=== PATIENT | female | born 1970 | race Caucasian/White ===

== ENCOUNTER 2017-01-07 08:26 | Emergency (ER) | payer MEDICAID ==
[2017-01-07 08:35] VITALS: BMI 31.6
[2017-01-07 08:36] VITALS: TEMP 98.9; O2SAT 98
[2017-01-07] MEDS ORDERED: Dexamethasone 4 mg/1 ml IM STA (08:52)
--- NOTE | 2017-01-07 08:52 | ED PDOC ---
Arrival/HPI - General Chief Complaint: Upper Extremity Problem/Injury Time Seen by Provider: 01/07/17 08:36 Historian: Patient - History of Present Illness Narrative History of Present Illness (Text): 01/07/17 08:50 Addis Slade is a 46 year old female, whose past medical history includes herniated disc's in her cervical spine, hypertension, and hypercholesterolemia, presents to the emergency department complaining of left shoulder pain for the past three weeks. Patient reports the pain is intermittent and has a sharp sensation when presents. She states pain comes whenever she coughs, sneezes, or adds any strenuous work to it. Patient notes she has taken Flexeril and Tramadol prescribed for her hernia, but there is no significant relief. Patient denies any other complaints. Denies any trauma. PMD: Dr. Myers Time/Duration: < month (3 weeks) Symptom Onset: Sudden Symptom Course: Unchanged Quality: Stabbing Activities at Onset: Light Modifying Factors (Text): worse with strenuous movement such as coughing, sneezing Past Medical History - Provider Review Nursing Documentation Reviewed: Yes - Infectious Disease Hx of Infectious Diseases: None - Pulmonary Hx Asthma: Yes - Neurological Other/Comment: herniated disc to cervical and lumbar - Hematological/Oncological Hx Anemia: Yes - Musculoskeletal/Rheumatological Hx Arthritis: Yes - Psychiatric Hx Depression: Yes Hx Substance Use: No - Surgical History Hx Section: Yes (x2) Hx Cholecystectomy: Yes Hx Gastric Bypass Surgery: Yes (04/2016) - Anesthesia Hx Anesthesia Reactions: No Hx Malignant Hyperthermia: No Family/Social History - Physician Review Nursing Documentation Reviewed: Yes Family/Social History: Unknown Family HX Smoking Status: Current Some Days Smoker Hx Alcohol Use: No Hx Substance Use: No Allergies/Home Meds Allergies/Adverse Reactions: Allergies dye Allergy (Uncoded 01/07/17 08:35) RASH Review of Systems - Review of Systems Constitutional: absent: Fevers Respiratory: absent: SOB Cardiovascular: absent: Chest Pain Gastrointestinal: absent: Abdominal Pain Genitourinary Female: absent: Dysuria Musculoskeletal: Other (left shoulder pain) Neurological: absent: Headache Physical Exam Vital Signs Reviewed: Yes Vital Signs Temp Pulse Resp BP Pulse Ox 01/07/17 09:56 80 16 131/84 98 01/07/17 08:26 98.9 F 81 18 136/83 98 Temperature: Afebrile Blood Pressure: Normal Pulse: Regular Respiratory Rate: Normal Appearance: Positive for: Well-Appearing, Non-Toxic, Comfortable Pain Distress: None Mental Status: Positive for: Alert and Oriented X 3 - Systems Exam Head: Present: Atraumatic, Normocephalic Pupils: Present: PERRL Extroacular Muscles: Present: EOMI Conjunctiva: Present: Normal Neck: Present: Normal Range of Motion Respiratory/Chest: Present: Clear to Auscultation, Good Air Exchange. No: Respiratory Distress, Accessory Muscle Use Cardiovascular: Present: Regular Rate and Rhythm, Normal S1, S2. No: Murmurs Abdomen: Present: Normal Bowel Sounds. No: Tenderness, Distention, Peritoneal Signs Upper Extremity: Present: Tenderness (posterior left shoulder ). No: Cyanosis, Edema Lower Extremity: Present: Normal Inspection. No: Edema Neurological: Present: GCS=15, CN II-XII Intact, Speech Normal Skin: Present: Warm, Dry, Normal Color. No: Rashes Psychiatric: Present: Alert, Oriented x 3, Normal Insight, Normal Concentration Medical Decision Making ED Course and Treatment: 01/07/17 Impression: 46 year old female with tenderness on posterior left shoulder Differential Diagnosis included but are not limited to: nerve impingement vs. arthritis vs. tendonitis Plan: -- Decadron -- Flexeril -- Toradol -- Reassess and disposition Progress Notes: On reevaluation, patient is feeling much better. There is no indication for xray. No trauma. Will discharge patient home with PMD f/u. She will continue taking her pain meds at home and is happy with the plan for followup. - Medication Orders Current Medication Orders: Discontinued Medications Cyclobenzaprine HCl (Flexeril) 10 mg PO STAT STA Stop: 01/07/17 08:53 Last Admin: 01/07/17 09:10 Dose: 10 mg Dexamethasone (Decadron Inj) 8 mg IM STAT STA Stop: 01/07/17 08:53 Last Admin: 01/07/17 09:09 Dose: 8 mg IM Administration Charges Document 01/07/17 09:09 AD (Rec: 01/07/17 09:09 AD [id number]) Injection Site MAR Injection Site Right Gluteus Gato Charges for Administration # of IM Administrations 1 Ketorolac Tromethamine (Toradol) 60 mg IM STAT STA Stop: 01/07/17 08:53 Last Admin: 01/07/17 09:09 Dose: 60 mg MAR Pain Assessment Document 01/07/17 09:09 AD (Rec: 01/07/17 09:09 AD [id number]) Pain Reassessment Is this a pain reassessment? No Presence of Pain Presence of Pain Yes Pain Scale Used Pain Scale Used Numeric Location Left, Right or Bilateral Left Pain Location Body Site Shoulder Description Description Constant Intensity of Pain at present 7 Pain Behavior Facial Grimacing Aggravating Factors Changing Position Exercise/Activity IM Administration Charges Document 01/07/17 09:09 AD (Rec: 01/07/17 09:09 AD [id number]) Injection Site MAR Injection Site Left Gluteus Gato Charges for Administration # of IM Administrations 1 - Scribe Statement The provider has reviewed the documentation as recorded by the Scribe Tisha New Provider Scribe Attestation: All medical record entries made by the Scribe were at my direction and personally dictated by me. I have reviewed the chart and agree that the record accurately reflects my personal performance of the history, physical exam, medical decision making, and the department course for this patient. I have also personally directed, reviewed, and agree with the discharge instructions and disposition. Disposition/Present on Arrival - Present on Arrival Any Indicators Present on Arrival: No History of DVT/PE: No History of Uncontrolled Diabetes: No Urinary Catheter: No History of Decub. Ulcer: No History Surgical Site Infection Following: Bariatric Surgery, None - Disposition Have Diagnosis and Disposition been Completed?: Yes Diagnosis: Shoulder pain, left Disposition Time: 09:50 Patient Plan: Discharge Condition: IMPROVED Discharge Instructions (ExitCare): Shoulder Pain (ED) Additional Instructions: Ms Slade, thank you for letting us take care of you today. Your provider was Dr. Christianson. You were treated for Left Shoulder Pain. The emergency medical care you received today was directed at your acute symptoms. If you were prescribed any medication, please fill it and take as directed. It may take several days for your symptoms to resolve. Return to the Emergency Department if your symptoms worsen, do not improve, or if you have any other problems. Please contact your doctor or call one of the physicians/clinics you have been referred to that are listed on the Patient Visit Information form that is included in your discharge packet. Bring any paperwork you were given at discharge with you along with any medications you are taking to your follow up visit. Our treatment cannot replace ongoing medical care by a primary care provider (PCP) outside of the emergency department. Thank you for allowing the [facility] team to be part of your care today. If you had an X-Ray or CT scan: A Radiologist will review the ED reading if any change in treatment is needed we will contact you. If you had a blood, urine, or wound culture: It will take several days for the results, if any change in treatment is needed we will contact you. If you had an STI test: It will take 48 hours for the results. Please call after 1 week if you have not heard back. Referrals: Bryce Guevara MD [Staff Provider] - Follow up with primary Forms: [employer] (Chinese)
[2017-01-07 09:57] VITALS: BP 131/84; PULSE 80; RESP 16
== END 2017-01-07 09:57 | disposition home or self-care (01) ==
LOC: ED 08:26
DX: M25.512 Pain in left shoulder (principal); I10 Essential (primary) hypertension; F17.210 Nicotine dependence, cigarettes, uncomplicated
CPT/HCPCS: 96372; 99284; J1100; J1885

== ENCOUNTER 2017-11-29 13:53 | Emergency (ER) | payer MEDICAID ==
[2017-11-29 14:02] VITALS: BMI 31.0
[2017-11-29 14:07] VITALS: TEMP 98.2; O2SAT 98
[2017-11-29] MEDS ORDERED: Lidocaine 5% Patch TD ONE (14:57)
--- NOTE | 2017-11-29 15:25 | ED PDOC ---
Arrival/HPI - General Chief Complaint: Back Pain Time Seen by Provider: 11/29/17 14:25 Historian: Patient - History of Present Illness Narrative History of Present Illness (Text): 11/29/17 15:28 A 47 year old female, whose past medical history includes hernias (back x 3, neck x 4), presents to the emergency department complaining of lower back pain to left-side. Patient reports worsens when ambulating, as pain shoots up toward upper back region. Notes left leg becomes shaky and painful when ambulating as well. Patient denies falls/traumas, fever, or any other complaints. PMD: Dr. Tommy Whelan Past Medical History - Provider Review Nursing Documentation Reviewed: Yes - Infectious Disease Hx of Infectious Diseases: None - Cardiac Hx Cardiac Disorders: Yes Hx Hypertension: Yes - Pulmonary Hx Asthma: Yes - Neurological Other/Comment: herniated disc to cervical and lumbar - HEENT Hx HEENT Disorder: No - Renal Hx Renal Disorder: No - Endocrine/Metabolic Hx Endocrine Disorders: No - Hematological/Oncological Hx Anemia: Yes - Integumentary Hx Dermatological Disorder: No - Musculoskeletal/Rheumatological Hx Arthritis: Yes - Gastrointestinal Hx Gastrointestinal Disorders: Yes - Genitourinary/Gynecological Hx Genitourinary Disorders: No - Psychiatric Hx Depression: Yes Hx Substance Use: No - Surgical History Hx Section: Yes (2 CSECTION) Hx Hysterectomy: Yes - Anesthesia Hx Anesthesia: Yes Hx Anesthesia Reactions: No Hx Malignant Hyperthermia: No Family/Social History - Physician Review Nursing Documentation Reviewed: Yes Family/Social History: No Known Family HX Smoking Status: Never Smoked Hx Alcohol Use: No Hx Substance Use: No Allergies/Home Meds Allergies/Adverse Reactions: Allergies dye Allergy (Uncoded 11/29/17 14:08) RASH Home Medications: Home Meds Medication Instructions Recorded Confirmed Acetaminophen/Oxycodone Hydr 1 tab PO BID PRN 08/11/15 08/11/15 [Percocet 10/325 mg Tab] Albuterol 0.083% [Albuterol 3 ml IH Q6 08/11/15 08/11/15 Sulfate 3 Ml] Amitriptyline [Elavil] 10 mg PO HS 08/11/15 08/11/15 Clonazepam 0.5 mg PO DAILY 08/11/15 08/11/15 Fenofibrate,Micronized [Lofibra] 67 mg PO DAILY 08/11/15 08/11/15 Furosemide [Lasix] 20 mg PO DAILY 08/11/15 08/11/15 Ketoconazole 2% Cr [Nizoral] 2 TP BID 08/11/15 Meclizine [Antivert] 25 mg PO Q6 08/11/15 08/11/15 Metoprolol Succinate XL [Toprol XL] 50 mg PO DAILY 08/11/15 08/11/15 Multivitamin/Iron/Folic Acid 1 tab PO DAILY 08/11/15 08/11/15 [Centrum] Nortriptyline [Nortriptyline HCl] 10 mg PO DAILY 08/11/15 08/11/15 OXcarbazepine [Trileptal] 150 mg PO DAILY 08/11/15 08/11/15 Pantoprazole [Protonix] 40 mg PO DAILY 08/11/15 08/11/15 Pota Chloride 10 meq PO DAILY 08/11/15 08/11/15 Potassium Chloride [Klor-Con 10] 10 meq PO DAILY 08/11/15 08/11/15 SUMAtriptan [Imitrex] 50 mg PO QID PRN 08/11/15 08/11/15 Simvastatin 40 mg PO DAILY 08/11/15 08/11/15 Valsartan [Diovan] 160 mg PO DAILY 08/11/15 08/11/15 Vitamim B6 100 mg PO DAILY 08/11/15 Vitamine E 1,000 iu PO DAILY 08/11/15 Review of Systems - Physician Review All systems were reviewed & negative as marked: Yes - Review of Systems Constitutional: absent: Fevers, Other (no falls/traumas) Respiratory: absent: SOB Cardiovascular: absent: Chest Pain Gastrointestinal: absent: Abdominal Pain Musculoskeletal: Back Pain (lower left-side back pain, worsens when ambulating and shoots up to upper back region.) Physical Exam Vital Signs Reviewed: Yes Vital Signs Temp Pulse Resp BP Pulse Ox 11/29/17 14:02 98.2 F 92 H 20 153/92 H 98 Temperature: Afebrile Blood Pressure: Normal Pulse: Regular Respiratory Rate: Normal Appearance: Positive for: Well-Appearing Pain Distress: None Mental Status: Positive for: Alert and Oriented X 3 - Systems Exam Head: Present: Atraumatic, Normocephalic Pupils: Present: PERRL Extroacular Muscles: Present: EOMI Conjunctiva: Present: Normal Mouth: Present: Moist Mucous Membranes Neck: Present: Normal Range of Motion Respiratory/Chest: Present: Clear to Auscultation, Good Air Exchange. No: Respiratory Distress, Accessory Muscle Use Cardiovascular: Present: Regular Rate and Rhythm, Normal S1, S2. No: Murmurs Abdomen: No: Tenderness, Distention, Peritoneal Signs Back: Present: Normal Inspection Upper Extremity: Present: Normal Inspection. No: Cyanosis, Edema Lower Extremity: Present: Normal Inspection. No: Edema Neurological: Present: GCS=15, CN II-XII Intact, Speech Normal Skin: Present: Warm, Dry, Normal Color. No: Rashes Psychiatric: Present: Alert, Oriented x 3, Normal Insight, Normal Concentration Medical Decision Making ED Course and Treatment: 11/29/17 15:32 Impression: 47 year old female with left-side lower back pain. Differential Diagnosis included but are not limited to: Herniated Disk Neuralgia Parasthetica Patellofemoral Syndrome Radicular Pain Plan: -- Urinalysis -- Tylenol -- Motrin -- Lidoderm -- Reassess and disposition Progress Notes: 11/29/17 16:23 Patient reevaluated and feels better. She reports having an appointment with a pain managment doctor on Tuesday. She will follow up. - Medication Orders Current Medication Orders: Discontinued Medications Acetaminophen (Tylenol 325mg Tab) 975 mg PO STAT STA Stop: 11/29/17 14:58 Last Admin: 11/29/17 15:06 Dose: 975 mg Ibuprofen (Motrin Tab) 600 mg PO STAT STA Stop: 11/29/17 14:58 Last Admin: 11/29/17 15:05 Dose: Not Given Non-Admin Reason: Patient Refused Lidocaine (Lidoderm) 1 ea TD ONCE ONE Stop: 11/29/17 14:58 Last Admin: 11/29/17 15:06 Dose: 1 ea MAR Transdermal Patch Site Document 11/29/17 15:06 GMD (Rec: 11/29/17 15:06 GMD [id number]) Transdermal Patch Site Transdermal Patch Site Left Lower Back - Scribe Statement The provider has reviewed the documentation as recorded by the Willibpatricia Hernandez Provider Scribe Provider Scribe Attestation: All medical record entries made by the Scribe were at my direction and personally dictated by me. I have reviewed the chart and agree that the record accurately reflects my personal performance of the history, physical exam, medical decision making, and the department course for this patient. I have also personally directed, reviewed, and agree with the discharge instructions and disposition. Disposition/Present on Arrival - Present on Arrival Any Indicators Present on Arrival: No History of DVT/PE: No History of Uncontrolled Diabetes: No Urinary Catheter: No History of Decub. Ulcer: No History Surgical Site Infection Following: Bariatric Surgery, None - Disposition Have Diagnosis and Disposition been Completed?: Yes Diagnosis: Leg pain, left, Foot pain, Lumbar pain Disposition Time: 16:27 Patient Plan: Discharge Discharge Instructions (ExitCare): Low Back Pain (DC), Heel Pain (Caused by Plantar Fasciitis) (DC) Prescriptions: Cyclobenzaprine [Flexeril] 5 mg PO DAILY 4 Days #4 tab Lidocaine 5% [Lidoderm] 1 ea TD Q12H #4 patch Referrals: Hayley Whelan MD [Primary Care Provider] - Follow up with primary Forms: [employer] (Tajik)
[2017-11-29 16:41] VITALS: BP 138/76; PULSE 84; RESP 18
== END 2017-11-29 16:44 | disposition home or self-care (01) ==
LOC: ED 13:53
DX: M54.5 Low back pain (principal); M79.605 Pain in left leg; M79.672 Pain in left foot